=== PATIENT | male | born 1985 | race Caucasian/White ===

== ENCOUNTER 2024-11-29 09:46 | Outpatient (AMB) | payer OTHER, SELFPAY ==
--- NOTE | 2024-11-29 10:05 | A.OFFPC_ITS ---
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 requesting PE Intake Note: new patient to establish new care Child Development Instructor Required: No Allergies ibuprofen Adverse Reaction (Intermediate, Verified 11/29/24 10:13) Hives Medication List - Last Reconciled 11/29/24 by Jered Alford MD sumatriptan succinate take 1 tab at onset of headache; if no relief may repeat 1 tab after at least 2 hrs; max = 4 tabs/24 hr PO Tobacco use date assessed: 11/29/24 Dental Screening Dental Screen Date: 11/29/24 Did you have a dental visit in the last 12 months?: No Did you have a dental problem in the last 6 months where you did not have access to dental care?: No Was dental information given to patient?: Patient has dentist HPI GENETIC COUNSELLOR requesting PE HPI Details New Patient? ?? Prior PCP:?No pcp Last office visit/CPE:? 20 yrs Acute issue(s):? L ankle pain L thumb catching Migraines ?? PMHx:? Migraines SurgHx:? None , White Teeth FHx:? Mom: Colon CA. Dad: HTN. GF: Prostate CA SocHx:? Quit Cigs 2 yrs ago. EtOH Occassionally 1-2 beers/month. No drugs PFSH Medical History (Updated 11/29/24 @ 10:40 by Lázaro Suggs) Psoriasis Arthritis Migraines Sinusitis Family History (Updated 11/29/24 @ 10:23 by Kanwal Bardales [facility]) Father High blood pressure Mother Cancer Maternal Grandmother Cancer Paternal Grandmother Cancer Paternal Grandfather Cancer Alcohol abuse Cardiovascular disease Maternal Grandfather Cancer Social History Housing: Apartment Patient Tobacco Use Status: Never used Tobacco e-Cigarette/Vaping Use: Never Used service: No Current occupational status: employed Current occupation: [employer] Current occupational exposures/hazards: No Cognitive needs: No Hearing needs: No Vision needs: No Questionnaire PHQ-9 Over the last 2 weeks, how often have you been bothered by any of the following problems? 1. Little interest or pleasure in doing things: not at all 2. Feeling down, depressed, or hopeless: not at all 3. Trouble falling or staying asleep, or sleeping too much: not at all 4. Feeling tired or having little energy: nearly every day 5. Poor appetite or overeating: nearly every day 6. Feeling bad about yourself - or that you are a failure or have let yourself or your family down: not at all 7. Trouble concentrating on things, such as reading the newspaper or watching television: not at all 8. Moving or speaking so slowly that other people could have noticed. Or the opposite - being so fidgety or restless that you have been moving around a lot more than usual: not at all 9. Thoughts that you would be better off or of hurting yourself in some way: not at all Total score: 6 Depression Screening Interpretation: Positive Depression Screening Done: Yes 65102 - PHQ-9 Billing: Yes Source: Developed by Drs. John Hebert, Aiyana Jacob, Kike Vna and colleagues, with an educational altaf from [employer]. Thrive Questionnaire Date Thrive assessed: 11/29/24 I am a: Patient What is your living situation today?: I have a steady place to live Within the past 12 months, did the food you bought not last and you didn't have the money to get more?: I choose not to answer this question Within the past 12 months, did you worry whether your food would run out before you got money to buy more?: I choose not to answer this question Do you have trouble paying for medicines?: No Do you have trouble getting transportation to medical appointments?: No Do you have trouble paying your heating and electricity bill?: I choose not to answer this question Do you have trouble taking care of your child, family member or friend?: No Do you have trouble with day-to-day activities such as bathing, preparing meals, shopping, managing finances, etc.?: No Are you currently unemployed and looking for a job?: No Are you interested in more education?: Yes Please select the resources that you would like help with: Childcare Currently or been in a relationship where the following occur: No concerns reported THRIVE Score: 0 AUDIT C Alcohol Use Questionnaire (AUDIT-C) 1. How often do you have a drink containing alcohol?: Monthly or less 2. How many drinks containing alcohol do you have on a typical day when you are drinking?: 1 or 2 3. How often do you have six or more drinks on one occasion?: Less than monthly Total Score: 2 NICOLE-7 AMB Questionnaire NICOLE-7 Date NICOLE - 7 assessed: 11/29/24 Feeling nervous, anxious, or on edge: 0 = Not at all Not being able to stop or control worryin = Not at all Worrying too much about different things: 0 = Not at all Trouble relaxin = Not at all Being so restless that it is hard to sit still: 0 = Not at all Becoming easily annoyed or irritable: 1 = Several days Feeling afraid as if something awful might happen: 0 = Not at all Total NICOLE-7 score (0-4 normal; 5-9 mild; 10-14 moderate; 15-21 severe): 1 Source: Developed by Drs. John Hebert, Aiyana Jacob, Kike Van and colleagues, with an educational altaf from [employer]. NICOLE-7 Assessment Billing NICOLE-7 Assessment Tool: NICOLE-7 Assessment 80119 Review of Systems Const Denies chills, Denies fatigue, Denies fever(s), Denies headache(s) and Denies weakness ENT Denies dizziness and Denies headache(s) Card Denies chest pain, Denies lightheadedness, Denies dyspnea and Denies other (Palpitations) Resp Denies cough, Denies dyspnea, Denies wheezing and Denies other ( shortness of breath) Musc Denies numbness and Denies tingling Neuro Denies dizziness, Denies headache(s), Denies numbness, Denies tingling, Denies paresthesias and Denies weakness Psych Denies anxiety and Denies depression Endo Denies fatigue Aller/Immun Denies wheezing Physical exam (Primary Care) Tobacco/Smoking Status: Tobacco use Status Tobacco use date assessed 11/29/24 11/29/24 10:14 Patient Tobacco Use Status Never used Tobacco 11/29/24 10:14 e-Cigarette/Vaping Use Never Used 11/29/24 10:14 PHQ-9: PHQ-9 Score PHQ-9: Total score 6 11/29/24 10:14 Depression Screening Interpretation: Positive Thrive Assessment: Date of Thrive Assessment Date Thrive assessed 11/29/24 11/29/24 10:14 Currently or been in a relationship where the following occur: No concerns reported Const General: no acute distress and well developed Nutritional Appearance: well nourished Orientation/consciousness: patient oriented x3 [facility] Head: Yes normocephalic and Yes atraumatic Eyes General: appearance normal, both eyes and all related structures Pupils: Equal, round and reactive pupils present EOM: EOMs intact bilaterally Resp Effort & Inspection: normal respiratory effort Auscultation: clear to auscultation bilaterally Cardio Rate: regular rate Rhythm: regular rhythm Heart sounds: S1 normal heart sound present, S2 normal heart sound present, no gallops, no murmurs and no rubs Neuro General: patient oriented x3 and gait normal Cranial nerves: Yes Equal, round and reactive pupils present Psych Affect: normal affect Coding Level of Care Code New Pt Level 3 (61056) Diagnoses Left ankle pain M25.572 Cervicalgia M54.2 Headache R51.9 Left leg pain M79.605 Thumb joint stiffness M25.649 Laboratory exam ordered as part of routine general medical examination Z00.00 Additional Codes NICOLE-7 Assessment Billing - NICOLE-7 Assessment Tool: NICOLE-7 Assessment 09365 ([id number]) PHQ-9 - 34499 - PHQ-9 Billing: Yes ([id number]) Assessment & Plan Assessment & Plan (1) Left ankle pain: Code(s): M25.572 - Pain in left ankle and joints of left foot Category: Medical Plan: Left?ankle?strain?and?stiffness Start?physical?therapy Continue?Tylenol?and?topical?NSAIDs.??Patient?says?he?has a?distant?history?of?allergy?or?intolerance?to?NSAIDs. (2) Cervicalgia: Code(s): M54.2 - Cervicalgia Category: Medical Plan: Neck?and?shoulder?stiffness?and?pain Start?physical?therapy Tylenol Ice/heat (3) Headache: Code(s): R51.9 - Headache, unspecified Category: Medical Plan: These?appear?to?be?migraine?style?headaches. Some?of?his?triggers?may?be?cervicalgia?however. Physical?therapy Trial?sumatriptan Hydrate?well (4) Left leg pain: Code(s): M79.605 - Pain in left leg Category: Medical Plan: Start?physical?therapy (5) Thumb joint stiffness: Code(s): M25.649 - Stiffness of unspecified hand, not elsewhere classified Category: Medical Plan: Left?thumb?stiffness?and?catching Will?give?him?short?course?of?prednisone He?says?he?does?not?tolerate?NSAIDs Ice/heat If?not?improving will?refer (6) Laboratory exam ordered as part of routine general medical examination: Code(s): Z00.00 - Encounter for general adult medical examination without abnormal findings Category: Medical Plan: Check?labs Orders: Orders Lipid Panel Today Z00.00 - Encounter for general adult medical examination without abnormal findings PT Evaluation and Treatment Today M25.572 - Pain in left ankle and joints of left foot, M54.2 - Cervicalgia, M79.605 - Pain in left leg, R51.9 - Headache, unspecified Microalbumin, Random (w Creat) Today I10 - Essential (primary) hypertension TSH reflex Free T4 Today Z00.00 - Encounter for general adult medical examination without abnormal findings UA CC w/rflx Micro + Cult Today Z00.00 - Encounter for general adult medical examination without abnormal findings Comprehensive [place]. Panel Fast Today Z00.00 - Encounter for general adult medical examination without abnormal findings Erythrocyte Sedimentation Rate Today M25.649 - Stiffness of unspecified hand, not elsewhere classified CRP High Sensitivity Today M25.649 - Stiffness of unspecified hand, not elsewhere classified Referrals Allergy & Immunology Referral Z88.6 - Allergy status to analgesic agent Medications: New sumatriptan succinate take 1 tab at onset of headache; if no relief may repeat 1 tab after at least 2 hrs; max = 4 tabs/24 hr PO 12 tabs 1RF prednisone 40 mg (2 x 20 mg) PO DAILY 5 days 10 tabs 0RF
[2024-11-29 10:14] VITALS: BP 120/70; PULSE 74; RESP 14; TEMP 37.3; O2SAT 98; BMI 41.9
== END 2024-11-29 10:37 | disposition home or self-care (01) ==
LOC: HO.HMCFM 09:47
PROVIDERS: PCP Family Medicine; Visit Provider Family Medicine
DX: M25.572 Pain in left ankle and joints of left foot (principal); M54.2 Cervicalgia; R51.9 Headache, unspecified; M79.605 Pain in left leg; M25.649 Stiffness of unspecified hand, not elsewhere classified; Z00.00 Encounter for general adult medical examination without abnormal findings

== ENCOUNTER → 2024-11-29 09:46 | Outpatient (BNVA) | payer OTHER, SELFPAY | PROVIDERS: PCP Family Medicine; Visit Provider Family Medicine | DX: M25.572 Pain in left ankle and joints of left foot (principal); M54.2 Cervicalgia; R51.9 Headache, unspecified; M79.605 Pain in left leg; M25.642 Stiffness of left hand, not elsewhere classified | CPT/HCPCS: 96127 ==

== ENCOUNTER 2024-12-18 12:52 | Outpatient (REF) | payer OTHER, SELFPAY ==
[2024-12-18 14:17] LABS: Appearance Urine Clear; Color Urine Yellow; Glucose Urine UA Negative (Negative); Leukocyte Esterase Urine Negative (Negative); Nitrite Urine Negative (Negative); Urine Blood Negative (Negative); Urine Ketones Trace mg/dL (Negative); Urine Protein Negative (Neg-Trace)
[2024-12-18 14:58] LABS: Creatinine Urine 132.88 mg/dL; Microalbum/Creatinine Ratio Ur 5.2 ug/mg cr (<30)
[2024-12-18 15:09] LABS: Erythrocyte Sedimentation Rate 9 MM/HR (0-15)
[2024-12-18 15:16] LABS: TSH reflex Free T4 0.93 uIU/mL (0.32-4.0)
[2024-12-22 08:34] LABS: CRP High Sensitivity 6.1 mg/L
== END 2024-12-18 12:53 | disposition home or self-care (01) ==
LOC: HO.WFDLDS 12:52
PROVIDERS: Visit Provider Family Medicine
DX: Z00.00 Encounter for general adult medical examination without abnormal findings (principal); I10 Essential (primary) hypertension; M25.649 Stiffness of unspecified hand, not elsewhere classified
CPT/HCPCS: 36415; 81003; 82043; 82570; 84443; 85652; 86141

== ENCOUNTER 2024-12-20 11:25 | Outpatient (REF) | payer OTHER, SELFPAY ==
[2024-12-20 14:43] LABS: Alanine Aminotransferase 38 U/L (0-40); Albumin Level 4.3 g/dL (3.5-5.0); Alkaline Phosphatase 54 U/L (39-117); Anion Gap 11 (12-20); Aspartate Amino Transferase 38 U/L (5-37); Bilirubin Total 0.4 mg/dL (0.0-1.0); Blood Urea Nitrogen 12 mg/dL (9-16); Carbon Dioxide 26 mmol/L (22-29); Chloride 104 mmol/L (96-108); Cholesterol 261 mg/dL (<200); Estimated Glomerular Filt Rate > 60; Glucose Fasting 92 mg/dL (60-99); HDL Cholesterol 41 mg/dL (>40); LDL Cholesterol Calculated 190 mg/dL (<100); Potassium 3.6 mmol/L (3.3-5.1); Sodium 137 mmol/L (135-145); Total Protein 7.1 g/dL (6.5-8.0); Triglycerides 153 mg/dL (<150)
== END 2024-12-20 11:26 | disposition home or self-care (01) ==
LOC: HO.WFDLDS 11:25
PROVIDERS: Visit Provider Family Medicine
DX: Z00.00 Encounter for general adult medical examination without abnormal findings (principal); Z13.6 Encounter for screening for cardiovascular disorders
CPT/HCPCS: 36415; 80053; 80061

== ENCOUNTER 2025-01-02 11:49 | Outpatient (AMB) | payer OTHER, SELFPAY ==
--- NOTE | 2025-01-02 11:51 | MHC.PC.OV ---
Vital Signs 01/02/25 11:55 Height 5 ft 8 in Weight 269 lb 4 oz BMI 40.9 BP 120/62 Blood Pressure Location Lt brachial Position Sitting Respiration 16 Pulse 91 Pulse Source Pulse Oximeter Temp 98.1 F Temp Source Oral Pulse Oximetry (%) 96 Oxygen Delivery Method Room Air Intake Visit Reasons: Physical Intake Note: patient scheduled for Physical with PCP. patient is having some pain ankle. patient is having upper right side pain he thinks it might hernia related. Allergies ibuprofen Adverse Reaction (Intermediate, Verified 01/02/25 11:54) Hives Medication List - Last Reconciled 01/02/25 by Jered Alford MD prednisone 40 mg (2 x 20 mg) PO DAILY 5 days sumatriptan succinate take 1 tab at onset of headache; if no relief may repeat 1 tab after at least 2 hrs; max = 4 tabs/24 hr PO Tobacco use date assessed: 01/02/25 Dental Screening Dental Screen Date: 01/02/25 HPI Physical HPI Details 39 y/o male presents for a CPE with f/u labs and health maintenance. Labs drawn 12/20/24. Reviewed labs with pt. AST mildly elevated at 38. Triglycerides 153. TC 261. LDL 190. HDL 41. Pt reports ankle pain. He denies any injuries to it. He notes it could be due to positioning at work with his footrest. Also reports hand pain. He reports abdominal pain/discomfort. [facility] Medical History (Updated 01/02/25 @ 12:44 by Jered Alford MD) Psoriasis Arthritis Migraines Sinusitis Family History (Updated 11/29/24 @ 10:23 by Kanwal Bardales [facility]) Father High blood pressure Mother Cancer Maternal Grandmother Cancer Paternal Grandmother Cancer Paternal Grandfather Cancer Alcohol abuse Cardiovascular disease Maternal Grandfather Cancer Social History Housing: Apartment Patient Tobacco Use Status: Never used Tobacco e-Cigarette/Vaping Use: Never Used service: No Current occupational status: employed Current occupation: [employer] Current occupational exposures/hazards: No Cognitive needs: No Hearing needs: No Vision needs: No Questionnaire Thrive Questionnaire Date Thrive assessed: 11/22/24 I am a: Patient What is your living situation today?: I have a steady place to live Within the past 12 months, did the food you bought not last and you didn't have the money to get more?: I choose not to answer this question Within the past 12 months, did you worry whether your food would run out before you got money to buy more?: I choose not to answer this question Do you have trouble paying for medicines?: No Do you have trouble getting transportation to medical appointments?: No Do you have trouble paying your heating and electricity bill?: I choose not to answer this question Do you have trouble taking care of your child, family member or friend?: No Do you have trouble with day-to-day activities such as bathing, preparing meals, shopping, managing finances, etc.?: No Are you currently unemployed and looking for a job?: No Are you interested in more education?: Yes Please select the resources that you would like help with: Childcare Currently or been in a relationship where the following occur: No concerns reported THRIVE Score: 0 NICOLE-7 AMB Questionnaire NICOLE-7 Date NICOLE - 7 assessed: 01/02/25 Source: Developed by Drs. John Hebert, Aiyana Jacob, Kike Van and colleagues, with an educational altaf from [employer]. Review of Systems Const Denies chills, Denies fatigue, Denies fever(s), Denies headache(s) and Denies weakness Eyes Denies change in vision ENT Denies dizziness and Denies headache(s) Card Denies dyspnea Resp Denies cough, Denies dyspnea, Denies wheezing and Denies other (shortness of breath) GI Denies abdominal pain, Denies melena, Denies hematochezia, Denies change in bowel habits, Denies dyspepsia and Denies nausea Denies hematuria and Denies dysuria Musc Details: L ankle pain Denies numbness and Denies tingling Skin/Breast Denies rash, Denies unusual bruising and Denies wounds Neuro Denies dizziness, Denies headache(s), Denies numbness, Denies Sensory deficit (Neuro), Denies tingling and Denies weakness Psych Denies anxiety and Denies depression Endo Denies fatigue Bernardo/Lymph Denies easy bleeding and Denies easy bruising Aller/Immun Denies wheezing Physical exam (Primary Care) Vital Signs: Last Vital Signs Temp 98.1 F 01/02/25 11:55 Pulse 91 01/02/25 11:55 Resp 16 01/02/25 11:55 BP 120/62 01/02/25 11:55 Pulse Ox 96 01/02/25 11:55 Oxygen Delivery Method Room Air 01/02/25 11:55 BMI result Body Mass Index 40.9 Tobacco/Smoking Status: Tobacco use Status Tobacco use date assessed 01/02/25 01/02/25 12:01 Patient Tobacco Use Status Never used Tobacco 01/02/25 12:01 e-Cigarette/Vaping Use Never Used 01/02/25 12:01 Thrive Assessment: Date of Thrive Assessment Date Thrive assessed 11/22/24 01/02/25 12:01 Currently or been in a relationship where the following occur: No concerns reported Const General: well developed; No acute distress Nutritional Appearance: well nourished Orientation/consciousness: patient oriented x3 HENMT Head: Yes normocephalic and Yes atraumatic Ears: hearing grossly normal bilaterally and TM's normal bilaterally General nose exam: Normal external nose present and Normal nares present Mouth: Normal oral and palatal mucosa present and moist mucous membranes Teeth and gingiva: dentition normal Throat: Yes posterior oropharynx normal Eyes General: appearance normal, both eyes and all related structures Pupils: Equal, round and reactive pupils present EOM: EOMs intact bilaterally Neck Neck: Yes normal visual inspection, Yes no lymphadenopathy and Yes trachea midline Thyroid: Thyroid normal Carotids: no bruits Lymphatic: no lymphadenopathy noted Chest Chest palpation & inspection: normal inspection of the chest Resp Effort & Inspection: normal respiratory effort Auscultation: clear to auscultation bilaterally Cardio Rate: regular rate Rhythm: regular rhythm Heart sounds: S1 normal heart sound present, S2 normal heart sound present, no gallops, no murmurs and no rubs Bruits: no abdominal aortic bruits and no carotid bruits GI Palpation (GI): No Abdominal aortic bruit present, Soft to palpation, nontender, No hepatosplenomegaly present and No Rebound tenderness present Auscultation: normal bowel sounds General: Yes no CVA tenderness Back/Spine/Pelvis Back: no CVA tenderness Cervical Spine: cervical ROM normal and No Cervical spine tenderness Thoracic/Lumbar Spine: thoraco-lumbar ROM normal, No pain with thoraco-lumbar ROM, No thoracic spinal tenderness and No lumbar spinal tenderness Skin Lesions: no lesions Rashes: no rashes Trauma: no lacerations or abrasions Wounds: no wounds Nails: normal Neuro General: patient oriented x3 and gait normal Cranial nerves: Yes Equal, round and reactive pupils present Cognition (Neuro): normal cognition Gait exam (Neuro): Normal gait present Motor exam (neuro): 5/5 motor strength present throughout Sensory Exam: No Sensory deficit (Neuro) Deep tendon reflexes (DTR's): Right patellar reflex intensity grade: 2+ and Left patellar reflex intensity grade: 2+ Extrem General: Yes normal to inspection and No edema Psych Appearance: grossly normal Affect: normal affect Attitude: cooperative Thought process: Normal thought process present Coding Level of Care Code Est Pt Level 3 (83340) Est Pt Prev Care 18-39y(97433) Diagnoses Adult general medical exam Z00.00 Hypercholesteremia E78.00 Elevated AST (SGOT) R74.01 Abdominal pain R10.9 Left ankle pain M25.572 Hand pain M79.643 Headache R51.9 Migraines G43.909 Assessment & Plan Assessment & Plan (1) Adult general medical exam: Code(s): Z00.00 - Encounter for general adult medical examination without abnormal findings Category: Medical Plan: 39-year-old?male?presents?for?complete?physical?exam Encouraged?healthy?diet?with?active?lifestyle?and?plenty?of?exercise?as?tolerated (2) Hypercholesteremia: Code(s): E78.00 - Pure hypercholesterolemia, unspecified Category: Medical Plan: LDL?cholesterol?is?too?high He?will?work?on?a?diet?low?in?saturated?fats?and?cholesterol Will?recheck?in?about?3?months (3) Elevated AST (SGOT): Code(s): R74.01 - Elevation of levels of liver transaminase levels Category: Medical Plan: Mildly?elevated?liver?enzyme Encouraged?weight?loss?and?good?hydration Will?recheck?with?next?blood?draw (4) Abdominal pain: Code(s): R10.9 - Unspecified abdominal pain Category: Medical Plan: Right?costal?margin?pain?at?insertion?point?of?rectus?abdominis?muscles Appears?mildly?strain Should?resolve?its?own Encouraged?weight?loss (5) Left ankle pain: Code(s): M25.572 - Pain in left ankle and joints of left foot Category: Medical Plan: Patient?has?tenderness?and?pain as well as swelling?at?left?lateral?malleolus Likely?sprain/strain Will?check?x-ray (6) Hand pain: Code(s): M79.643 - Pain in unspecified hand Category: Medical Plan: Bilateral?hand?pain. Repetitive?hand?movements?at?work Likely?tendinitis Will?give?him?diclofenac?gel Check?x-rays Inflammatory?markers?were?unremarkable. (7) Headache: Code(s): R51.9 - Headache, unspecified Category: Medical Plan: Patient?had?unilateral?headache?likely?migraine?and he?tried?sumatriptan?which?is?helping He?can?continue?using?this.??Gets?about?4?migraines?per month. (8) Migraines: Code(s): G43.909 - Migraine, unspecified, not intractable, without status migrainosus Category: Medical Plan: as above Orders: Orders XR ankle LT min 3V Today M25.572 - Pain in left ankle and joints of left foot XR hand RT min 3V Today M79.643 - Pain in unspecified hand XR hand LT min 3V Today M79.643 - Pain in unspecified hand Comprehensive [place]. Panel Fast Today E78.00 - Pure hypercholesterolemia, unspecified, Z00.00 - Encounter for general adult medical examination without abnormal findings Lipid Panel Today E78.00 - Pure hypercholesterolemia, unspecified, Z00.00 - Encounter for general adult medical examination without abnormal findings Rheumatoid Factor Today M79.643 - Pain in unspecified hand Medications: New diclofenac sodium 1% (Arthritis Pain (diclofenac)) apply to single knee, ankle, foot; for foot includes sole/toes/top of foot 4 grams topical BID 30 days 200 grams 2RF
[2025-01-02 11:55] VITALS: BP 120/62; PULSE 91; RESP 16; TEMP 36.7; O2SAT 96; BMI 40.9
== END 2025-01-02 12:41 | disposition home or self-care (01) ==
LOC: HO.HMCFM 11:49
PROVIDERS: PCP Family Medicine; Visit Provider Family Medicine
DX: Z00.00 Encounter for general adult medical examination without abnormal findings (principal); M79.641 Pain in right hand; M79.642 Pain in left hand; E78.00 Pure hypercholesterolemia, unspecified; R74.01 Elevation of levels of liver transaminase levels; R10.9 Unspecified abdominal pain; M25.572 Pain in left ankle and joints of left foot; R51.9 Headache, unspecified; G43.909 Migraine, unspecified, not intractable, without status migrainosus

== ENCOUNTER → 2025-01-02 11:49 | Outpatient (BNVA) | payer OTHER, SELFPAY | PROVIDERS: PCP Family Medicine; Visit Provider Family Medicine | DX: Z13.89 Encounter for screening for other disorder (principal) ==

== ENCOUNTER 2025-02-06 08:09 | Outpatient (RCR) | payer OTHER, SELFPAY ==
--- NOTE | 2025-02-06 14:04 | MHC.PT.DC ---
[facility] [place] Office [place] Office [place] Office [address] Debora Christianson [address] [phone] F: [phone] F: [phone] F: [phone] F: [phone] Physical Therapy Discharge Report Diagnosis: HEADACHES (KP) Date of Surgery: Date of Evaluation: 01/11/25 Date of Discharge: 02/06/25 Treatments to Date: 7 Cancellations to Date: 0 No Shows to Date: 0 Discharge Status: Improved Function Independent with HEP Discharge Summary: Yeyo has been an active and motivated participant in his therapy in the clinic and at home; he has improved his improved his VENTURA intensity and frequency and as well as his tolerance for sitting for duration though he does persist with neck pain and VENTURA though is hopeful his Sx with continue to improve with doing his home program. Electronically signed by: Colby Card PT. Please sign and return to therapist. Thank you for your referral.
== END 2025-02-06 13:15 | disposition home or self-care (01) ==
LOC: HO.PT 08:09
PROVIDERS: PCP Family Medicine; Visit Provider Family Medicine
DX: M54.2 Cervicalgia (principal); M25.572 Pain in left ankle and joints of left foot; R51.9 Headache, unspecified
CPT/HCPCS: 97014; 97110; 97140; 97162; 97530; 97535

== ENCOUNTER 2025-04-02 09:35 | Outpatient (REF) | payer OTHER, SELFPAY ==
--- OUTSIDE RECORDS SUMMARY | 2025-04-02 10:16 | XMS_ITS | Clinical Summary ---
Author Organization [facility] Address [address] [facility] [address] [place] [phone] Phone Care Team Providers Care Production Support Supervisor Name Role Phone Pcp, Unknown Primary Care Provider Unavailabl e Social History Tobacco Use Types Packs/Day Years Used Date Smoking Tobacco: Never Assessed Education Answer Date Recorded Are you interested in more education? Not on tello e 12/17/2022 Are you concerned about learning? Not on file 12/17/2022 No 12/17/2022 No 12/17/2022 Digital Access Answer Date Recorded No 01/15/2023 No 01/15/2023 No 01/15/2023 Reliable internet access at home? Not on file 01/15/2023 Device with a working camera? Not on file Sex and Gender Information Value Date Recorded Sex Assigned at Not on file Legal Sex Male 12:15 PM EST Gender Identity Not on file Sexual Orientation Not on file Plan of Treatment Health Maintenance Due Date Last Done Comments Adult Td,Tdap Booster 1986 LIPID PANEL 1986 DEPRESSION SCREENING 1998 SMOKING Hx and SMOKELESS TOBACCO SCREENING 1999 COVID-19 VACCINE (2023-2 5 season) 2024 HEPATITIS C SCREENING Completed 11/08/2023 , 05/24/2022 HIV ONE-TIME SCREENING (18-6 5 YEARS) Completed 11/08/2023 HEPATITIS A VACCINES Aged Out No long er eligible based on patient's age to complete this topic HIB VACCINES Aged Out No longer eligi ble based on patient's age to complete this topic MENINGOCOCCAL VACCINES (ACWY) Aged Out No longer eligible based on patient's age to complete this topic MENINGOCOCCAL VACCINES (B) Aged Out N o longer eligible based on patient's age to complete this topic PNEUMOCOCCAL VACCINES (0-49 years) Aged Out No longer eligible b ased on patient's age to complete this topic Medical Devices Not on file Procedures Procedure Name Priority Date/Time Associated Diagnosis Comments HEPATITIS C ANTIBODY, QUALITATIVE Routine 11/08/2023 4:02 PM EDT Procreation management investigation and testing from Last 3 Months or Most Recently Relevant to Health Maintenance Results * Hepatitis C antibody, qualitative (11/08/2023 4:02 PM EDT) HCV NON-REACTIV E NON-REACTI VE [facility] Blood 11/08/2023 4:02 PM EDT 11/08/2023 4:07 PM EDT us Melia Bright MD LAB BLOOD ORDERABLES Final Res ult [address] [id number] from Last 3 Months or Most Recently Relevant to Health Maintenance Insurance [facility] PPO CIG PPO CIGNA PPO CIGNA PPO CIGNA PPO CIGNA PPO Care Teams Production Support Supervisor Relationship Specialty Start Date End Date Pcp, Unknown PCP - General 11/29/22 Additional Source Comments The information contained in this document represents components of the legal health record. It is not the complete legal health record.[facility]
[2025-04-02 11:55] LABS: Alanine Aminotransferase 35 U/L (0-40); Albumin Level 4.5 g/dL (3.5-5.0); Alkaline Phosphatase 48 U/L (39-117); Anion Gap 14 (12-20); Aspartate Amino Transferase 24 U/L (5-37); Blood Urea Nitrogen 19 mg/dL (9-16); Calcium 8.9 mg/dL (8.4-10.2); Carbon Dioxide 25 mmol/L (22-29); Chloride 106 mmol/L (96-108); Cholesterol 224 mg/dL (<200); Estimated Glomerular Filt Rate > 60; HDL Cholesterol 54 mg/dL (>40); Potassium 3.7 mmol/L (3.3-5.1); Sodium 141 mmol/L (135-145); Total Protein 6.8 g/dL (6.5-8.0); Triglycerides 180 mg/dL (<150)
== END 2025-04-02 09:36 | disposition home or self-care (01) ==
LOC: HO.WFDLDS 09:35
PROVIDERS: Visit Provider Family Medicine
DX: Z00.00 Encounter for general adult medical examination without abnormal findings (principal); E78.00 Pure hypercholesterolemia, unspecified; M79.643 Pain in unspecified hand
CPT/HCPCS: 36415; 80053; 80061; 86431

== ENCOUNTER 2025-04-05 11:17 | Outpatient (AMB) | payer OTHER, SELFPAY ==
--- OUTSIDE RECORDS SUMMARY | 2025-04-05 11:22 | XMS_ITS | Clinical Summary ---
Author Organization Located Within [facility] Address [address] [facility] [address] [place] [id number] Phone Care Team Providers Care Software Verification Engineer Name Role Phone Pcp, Unknown Primary Care [...] PM EDT) HCV NON-REACTIV E NON-REACTI VE [facility] Blood 11/08/2023 4:02 PM EDT 11/08/2023 4:07 PM EDT us Melia Bright MD LAB BLOOD ORDERABLES Final Res ult [address] [id number] from Last 3 Months or Most Recently Relevant to Health Maintenance Insurance [facility] PPO CIG PPO CIGNA PPO CIGNA PPO CIGNA PPO CIGNA PPO Care Teams Software Verification Engineer Relationship Specialty Start Date End Date Pcp, Unknown PCP - General 11/29/22 Additional Source Comments The information contained in this document represents components of the legal health record. It is not the complete legal health record.Located Within [facility]
--- NOTE | 2025-04-05 11:27 | A.OFFPC_ITS ---
Vital Signs 04/05/25 11:33 Height 5 ft 8 in Weight 251 lb 4 oz BMI 38.2 BP 102/68 Blood Pressure Location Rt brachial Position Sitting Respiration 16 Pulse 88 Pulse Source Pulse Oximeter Temp 98.2 F Temp Source Temporal Artery Scan Pulse Oximetry (%) 95 Oxygen Delivery Method Room Air Intake Visit Reasons: f/u lipids, x-ray, labs Intake Note: Yeyo presents in the office today to follow up on his labs. Patient did not get x-rays done. Patient would like a refill of the sumitriptan. Allergies ibuprofen Adverse Reaction (Intermediate, Verified 04/05/25 11:30) Hives Medication List - Last Reconciled 04/05/25 by Jered Alford MD diclofenac sodium 1% (Arthritis Pain (diclofenac)) 4 grams topical BID 30 days sumatriptan succinate take 1 tab at onset of headache; if no relief may repeat 1 tab after at least 2 hrs; max = 4 tabs/24 hr PO Tobacco use date assessed: 04/05/25 Dental Screening Dental Screen Date: 04/05/25 Did you have a dental visit in the last 12 months?: No Did you have a dental problem in the last 6 months where you did not have access to dental care?: No Was dental information given to patient?: Patient has dentist HPI f/u lipids, x-ray, labs HPI Details 40 y/o male presents to f/u HLD, mildly elevated liver enzymes. Labs ordered 04/02/25. Reviewed labs with pt. Triglycerides 180. TC 224. LDL 134. HDL 54. Liver enzymes improved - AST 24, ALT 35 U/L. Pt notes sumatriptan has been helping with headaches. Has been doing PT for his neck. [facility] Medical History (Updated 04/05/25 @ 12:36 by Jered Alford MD) Psoriasis Arthritis Migraines Sinusitis Family History (Updated 04/05/25 @ 11:32 by Nazia Krueger MA) Father High blood pressure Mother Cancer Maternal Grandmother Cancer Paternal Grandmother Cancer Paternal Grandfather Cancer Alcohol abuse Cardiovascular disease Maternal Grandfather Cancer Other Substance abuse Social History (Updated 04/05/25 @ 11:33 by Nazia Krueger MA) Housing: Apartment Alcohol intake: never Patient Tobacco Use Status: Never used Tobacco e-Cigarette/Vaping Use: Never Used Second Hand Smoke Exposure: No service: No Current occupational status: employed Current occupation: [employer] Current occupational exposures/hazards: No Cognitive needs: No Hearing needs: No Vision needs: No Questionnaire Thrive Questionnaire Date Thrive assessed: 11/22/24 I am a: Patient What is your living situation today?: I have a steady place to live Within the past 12 months, did the food you bought not last and you didn't have the money to get more?: I choose not to answer this question Within the past 12 months, did you worry whether your food would run out before you got money to buy more?: I choose not to answer this question Do you have trouble paying for medicines?: No Do you have trouble getting transportation to medical appointments?: No Do you have trouble paying your heating and electricity bill?: I choose not to answer this question Do you have trouble taking care of your child, family member or friend?: No Do you have trouble with day-to-day activities such as bathing, preparing meals, shopping, managing finances, etc.?: No Are you currently unemployed and looking for a job?: No Are you interested in more education?: Yes Please select the resources that you would like help with: Childcare Currently or been in a relationship where the following occur: No concerns reported THRIVE Score: 0 NICOLE-7 AMB Questionnaire NICOLE-7 Date NICOLE - 7 assessed: 01/02/25 Source: Developed by Drs. John Hebert, Aiyana Jacob, Kike Van and colleagues, with an educational altaf from [employer]. Review of Systems Const Denies chills, Denies fatigue, Denies fever(s), Denies headache(s) and Denies weakness ENT Denies dizziness and Denies headache(s) Card Denies dyspnea Resp Denies cough, Denies dyspnea, Denies wheezing and Denies other (shortness of breath) Musc Denies numbness and Denies tingling Neuro Denies dizziness, Denies headache(s), Denies numbness, Denies tingling and Denies weakness Psych Denies anxiety and Denies depression Endo Denies fatigue Aller/Immun Denies wheezing Physical exam (Primary Care) Vital Signs: Last Vital Signs Temp 98.2 F 04/05/25 11:33 Pulse 88 04/05/25 11:33 Resp 16 04/05/25 11:33 BP 102/68 04/05/25 11:33 Pulse Ox 95 04/05/25 11:33 Oxygen Delivery Method Room Air 04/05/25 11:33 BMI result Body Mass Index 38.2 Tobacco/Smoking Status: Tobacco use Status Tobacco use date assessed 04/05/25 04/05/25 11:36 Patient Tobacco Use Status Never used Tobacco 04/05/25 11:33 e-Cigarette/Vaping Use Never Used 04/05/25 11:33 Thrive Assessment: Date of Thrive Assessment Date Thrive assessed 11/22/24 04/05/25 11:27 Currently or been in a relationship where the following occur: No concerns reported Const General: well developed; No acute distress Nutritional Appearance: well nourished Orientation/consciousness: patient oriented x3 HENMT Head: Yes normocephalic and Yes atraumatic Eyes General: appearance normal, both eyes and all related structures Pupils: Equal, round and reactive pupils present EOM: EOMs intact bilaterally Resp Effort & Inspection: normal respiratory effort Neuro General: patient oriented x3 and gait normal Cranial nerves: Yes Equal, round and reactive pupils present Psych Affect: normal affect Coding Level of Care Code Est Pt Level 5 (64768) Diagnoses Hypercholesteremia E78.00 Elevated AST (SGOT) R74.01 Cervicalgia M54.2 Headache R51.9 Hand pain M79.643 Low back pain radiating down leg M54.50; M79.606 Class 2 obesity with body mass index (BMI) of 38.0 to 38.9 in adult E66.812; Z68.38 Assessment & Plan Assessment & Plan (1) Hypercholesteremia: Code(s): E78.00 - Pure hypercholesterolemia, unspecified Category: Medical Plan: Patient has made a significant improvement in his LDL cholesterol. Still above goal of less than 100 Continue working on diet exercise and weight loss. Work on lowering saturated fats and cholesterol in diet Will continue monitoring and recheck in 3-4 months (2) Elevated AST (SGOT): Code(s): R74.01 - Elevation of levels of liver transaminase levels Category: Medical Plan: Liver enzymes back within normal range. Continue good hydration Encouraged weight loss (3) Cervicalgia: Code(s): M54.2 - Cervicalgia Category: Medical Plan: This improved with physical therapy Continue exercises learned at physical therapy (4) Headache: Code(s): R51.9 - Headache, unspecified Category: Medical Plan: Headaches improved with physical therapy and also sumatriptan Continue exercises learned in physical therapy Will refill sumatriptan (5) Hand pain: Code(s): M79.643 - Pain in unspecified hand Category: Medical Plan: Ongoing bilateral hand pain which improved with relative rest while not at work. 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 Likely would not be able to work with a splint or brace. Can try an Alhaji bandage or taping. We can consider occupational therapy though patient says physical therapy was quite expensive so he wants to hold off on this Distant allergy to oral NSAID. He is tolerating diclofenac gel and can continue this. Will refill. Ice/heat (6) Low back pain radiating down leg: Code(s): M54.50 - Low back pain, unspecified; M79.606 - Pain in leg, unspecified Plan: Patient went to [facility] for back pain and was given a script for prednisone and oxycodone. Still has significant back pain radiating into right leg. Avoiding oral NSAIDs Will give him a script for a prednisone taper Ice/heat Demonstrated stretching exercises and when he is feeling better he can perform strengthening exercises which were also demonstrated. If still not improving would consider imaging and physical therapy. (7) Class 2 obesity with body mass index (BMI) of 38.0 to 38.9 in adult: Code(s): E66.812 - Obesity, class 2; Z68.38 - Body mass index [BMI] 38.0-38.9, adult Category: Medical Plan: Counseled patient regarding diet and exercise for weight loss. He would like a referral to the weight management program-referred Orders: Orders Lipid Panel 04/05/25 E78.00 - Pure hypercholesterolemia, unspecified, Z00.00 - Encounter for general adult medical examination without abnormal findings [facility] [place]. Panel Fast 04/05/25 E78.00 - Pure hypercholesterolemia, unspecified, Z00.00 - Encounter for general adult medical examination without abnormal findings Referrals Medical Weight Management Referral E66.812 - Obesity, class 2, E78.00 - Pure hypercholesterolemia, unspecified, Z68.38 - Body mass index [BMI] 38.0-38.9, adult Medications: New prednisone 4 tabs daily for 4 days, 3 tabs daily for 2 days, 2 tabs daily for 2 days, 1 tab daily for 2 days PO daily; 28 tabs 0RF 10 days E78.00 - Pure hypercholesterolemia, unspecified Refilled sumatriptan succinate take 1 tab at onset of headache; if no relief may repeat 1 tab after at least 2 hrs; max = 4 tabs/24 hr PO 12 tabs 1RF E78.00 - Pure hypercholesterolemia, unspecified diclofenac sodium 1% (Arthritis Pain (diclofenac)) apply to single knee, ankle, foot; for foot includes sole/toes/top of foot 4 grams topical BID 200 grams 2RF 30 days E78.00 - Pure hypercholesterolemia, unspecified
[2025-04-05 11:33] VITALS: BP 102/68; PULSE 88; RESP 16; TEMP 36.8; O2SAT 95; BMI 38.2
== END 2025-04-05 12:29 | disposition home or self-care (01) ==
LOC: HO.HMCFM 11:18
PROVIDERS: PCP Family Medicine; Visit Provider Family Medicine
DX: E78.00 Pure hypercholesterolemia, unspecified (principal); R74.01 Elevation of levels of liver transaminase levels; M54.2 Cervicalgia; R51.9 Headache, unspecified; M79.641 Pain in right hand; E66.812 Obesity, class 2; Z68.38 Body mass index [BMI] 38.0-38.9, adult; M54.50 Low back pain, unspecified; M79.604 Pain in right leg; M79.642 Pain in left hand